=== PATIENT | male | born 1975 | race Caucasian/White ===

== ENCOUNTER 2017-05-02 08:34 | Emergency (ER) | payer OTHER ==
[~2017-05-02] VITALS: Ht 185.4 cm; Wt 94.0 kg
[~2017-05-02 08:34] MED LIST: BUSP-8 PO; CALC500C3 PO; CLON1TAB3 PO; FAMO20TA11 PO; FLUO40CA8 PO
[2017-05-02 08:39] VITALS: TEMP 37.1; Ht 185.4 cm; Wt 94.0 kg
[2017-05-02] MEDS ORDERED: ONDANSETRON INJ 2 MG/ML 2 ML VIAL IV STA (09:00)
[2017-05-02] MEDS ORDERED: HYDROmorphone INJ 1 MG/ML SYR IV STA (09:00)
[2017-05-02] MEDS ORDERED: HYDROmorphone INJ 0.5 MG/0.5 ML SYR IV PRN (09:00)
[2017-05-02] MEDS ORDERED: SODIUM CHLORIDE 0.9% 1000ML 1,000 ML IV STA (09:00)
[2017-05-02 09:13] LABS: MEAN CORPUSCULAR HGB CONC 33.8 g/dl (32-36)
[2017-05-02 09:15] LABS: MEAN CELL VOLUME 81.8 fL (80-100); MEAN CORPUSCULAR HEMOGLOBIN 27.6 pg (25-34); RED BLOOD COUNT 5.87 M/uL (4.7-6.1); WHITE BLOOD COUNT 4.61 K/uL (4.8-10.8)
[2017-05-02 09:32] LABS: URINE APPEARANCE CLEAR (CLEAR); URINE BILIRUBIN NEG (NEG); URINE COLOR YELLOW; URINE EPITHELIAL CELL AUTO 0-5 /lpf (0-5); URINE NITRITE NEG (NEG); URINE PH 8.5 (4.5-7.5); UROBILINOGEN NEG (NEG)
[2017-05-02 09:35] LABS: MANUAL MICROSCOPIC REQUIRED? NO; REVIEW REQ? NO
[2017-05-02 09:40] LABS: ALKALINE PHOSPHATASE 95 U/L (45-117); ALT/SGPT 50 U/L (12-78); AST/SGOT 45 U/L (15-37); BLOOD UREA NITROGEN 13 mg/dl (7-18); BUN/CREATININE RATIO 12.5 (10-20); CALCIUM 9.1 mg/dl (8.5-10.1); CARBON DIOXIDE 25 mmol/L (21-32); CHLORIDE 105 mmol/L (98-107); CREATININE 1.01 mg/dl (0.60-1.40); GLUCOSE 88 mg/dl (70-99); POTASSIUM 4.4 mmol/L (3.5-5.1); SODIUM 140 mmol/L (136-145)
[2017-05-02 09:46] LABS: PLATELET COUNT 129 K/uL (130-400)
[2017-05-02 09:47] LABS: BASO ABS # 0.08 K/uL (0-0.2); BASOPHIL % 1.8 % (0-2); COMPLETE YES; EOSINOPHIL % 1.8 %; LYMPH ABS # 0.94 K/uL (1.2-3.4); LYMPHOCYTE % 20.4 %; VARIANT LYM ABS # 0.77 K/uL; VARIANT LYMPHOCYTE % 16.8 %
[2017-05-02] MEDS ORDERED: CLON0.5T3 PO (09:53)
--- NOTE | 2017-05-02 12:12 | DIAGNOSTIC IMAGING REPORT ---
CT ABD/PELVIS IV AND ORAL CONT CLINICAL HISTORY: Right-sided abdominal pain COMPARISON STUDY: April 21, 2016 TECHNIQUE: Following the IV administration of 95 mL of Optiray-320, CT scan of the abdomen and pelvis was performed from the lung bases to the proximal femurs. Images are reviewed in the axial, sagittal, and coronal planes. IV contrast was administered without complication. A dose lowering technique was utilized adhering to the principles of ALARA. CT DOSE: 529.28 mGy.cm FINDINGS: Lower chest: There is an 8 triangular, somewhat flat nodule within the right lower lobe as visualized in image #8 of 461. This was not visualized the preceding study. This is of relatively low suspicion but given its interval appearance short-term follow-up is recommended. Liver: The contrast-enhanced liver is normal in size, contour, and attenuation. There is no intrahepatic biliary ductal dilatation. The hepatic veins and portal veins are patent. Gallbladder: Unremarkable. Spleen: Normal in size and attenuation. Pancreas: Unremarkable. Adrenal glands: Unremarkable. Kidneys: There is a 4 mm right renal hypodensity likely representing a cyst. There is a 3 mm lower pole right renal calculus. Bowel: There are postsurgical changes of a sigmoid anastomosis. There are no transition zones indicate bowel obstruction area by history the appendix is surgically absent. There is no evidence of acute diverticulitis. There is a left-sided spigelian hernia. There is a widemouth periumbilical ventral hernia containing small bowel loops. This does not result in bowel obstruction. Peritoneum: There is no intraperitoneal free air or abdominal ascites. Vasculature: The abdominal aorta is normal in course and caliber. Adenopathy: None. Pelvic viscera: The bladder, and pelvic viscera are unremarkable. Skeletal structures: No destructive osseous lesions are seen. IMPRESSION: 1. No evidence of bowel obstruction. No evidence of free air 2. Postsurgical changes of a sigmoid anastomosis 3. No evidence of acute diverticulitis 4. Bowel containing ventral hernia. No evidence of obstruction. 5. Left-sided spigelian hernia 6. Right-sided nephrolithiasis 7. 8 mm right lower lobe pulmonary nodule. 6-[address] follow-up is recommended. Please refer to below summary of Fleischner criteria recommendations for follow-up of incidental CT nodules (Paty Jain, Guidelines for management of small pulmonary nodules detected on CT scans: A statement from the Fleischner Society, Radiology 237: [phone].) SOLID NODULES Solitary nodule size: <6 mm * low risk patients: no follow-up needed * high risk patients: optional CT at 12 months Solitary nodule size: 6-8 mm * low risk patients: follow-up at 6-12 months, then consider further follow-up at 18-24 months * high risk patients: initial follow-up CT at 6-12 months and then at 18-24 months if no change Solitary nodule size: >8 mm * either low or high risk patients - consider follow-up CT at 3 months, and/or CT-PET, and/or biopsy Multiple nodules size: <6 mm * low risk patients: no routine follow-up * high risk patients: optional CT at 12 months Multiple nodules size: 6-8 mm * low risk patients: follow-up at 3-6 months, then consider further follow-up at 18-24 months * high risk patients: follow-up at 3-6 months, then at 18-24 months if no change Multiple nodules size: >8 mm * low risk patients: follow-up at 3-6 months, then consider further follow-up at 18-24 months * high risk patients: follow-up at 3-6 months, then at 18-24 months if no change Note: newly detected indeterminate nodule in persons 35 years of age or older. * low risk patients: minimal or absent history of smoking and/or other known risk factors * high risk patients: history of smoking or of other known risk factors (e.g. first degree relative with lung cancer, or exposure to asbestos, radon, uranium) * if a nodule up to 8 mm is partly solid or is ground glass further follow-up is required after 24 months to exclude possible slow growing adenocarcinoma (VAISHNAVI) SUBSOLID NODULES Solitary pure ground-glass nodule * nodule size <6 mm - no CT follow-up required * nodule size >=6 mm - follow-up CT at 6-12 months, then every 2 years until 5 years Solitary part-solid nodule * nodule size <6 mm - no CT follow-up required * nodule size >=6 mm - follow-up CT at 3-6 months. If unchanged, and solid component remains <6 mm, then annual follow-up for 5 years Multiple subsolid nodules * nodule size <6 mm - follow-up CT at 3-6 months, consider further follow-up at 2 and 4 years if stable * nodule size >=6 mm - follow-up CT at 3-6 months, subsequent management based on the most suspicious nodule(s) Electronically signed by: Wilson Becker M.D. 05/02/2017 12:11 PM Dictated Date/Time: 05/02/2017 12:02 PM
[2017-05-02] MEDS ORDERED: OXYC1TAB3 PO (13:14)
[2017-05-02 13:26] VITALS: BP 149/96; PULSE 62; O2SAT 97
--- NOTE | 2017-05-02 16:09 | EMERGENCY ROOM VISIT NOTE ---
History First contact with patient: 08:38 Chief Complaint: ABDOMINAL PAIN Stated Complaint: TERRIBLE STOMACH PAIN Nursing Triage Summary: abd pain hx diverticulitis with colostomy then reversed History of Present Illness The patient is a 42 year old male who presents to the Emergency Room with complaints of severe central and lower abdominal pain that woke him up around 3 AM this morning. The patient thought that he may have reflux, and took Tums without relief. He has had nausea without vomiting. The pain is worsened with movement. He denies any recent constipation, urinary symptoms or diarrhea. He denies any pain radiating into the upper back, chest or neck. The patient reports a prior history of diverticulitis with perforation, requiring bowel resection with colostomy in April 2015, followed by subsequent ostomy reversal this past spring by Dr. Lentz. He is concerned that he has another recurrent diverticulitis. He rates his discomfort a 10 out of 10. Review of Systems HEENT: Denies dizziness, visual problems, hearing loss, tinnitus. Denies difficulty swallowing or oral lesions. PULMONARY: Denies cough, shortness of breath, sputum production or hemoptysis. CARDIOVASCULAR: Denies chest pain, palpitations, dyspnea on exertion, orthopnea or peripheral edema. GASTROINTESTINAL: See history of present illness. GENITOURINARY: Denies dysuria, frequency, urgency or nocturia. NEUROLOGIC: Denies history of epilepsy, CVA, TIA or chronic headaches. MUSCULOSKELETAL: Denies history of joint tenderness/swelling. SKIN: Denies rashes or lesions. PSYCHIATRIC: Denies history of depression or mental illness. ENDOCRINE: Denies history of diabetes or thyroid disorders. Past Medical/Surgical History Medical Problems: (1) Bowel perforation (2) Diverticulitis Surgical Problems: (1) History of colostomy Family History Cancer Diabetes mellitus Social History Smoking Status: Current Every Day Smoker Alcohol Use: occasionally Drug Use: none Marital Status: single Occupation Status: employed Current/Historical Medications Scheduled PRN Calcium Carbonate (Tums), 1 TAB PO DAILY PRN for HEARTBURN Oxycodone Ir (Roxicodone Ir), 1-2 TAB PO Q4H PRN for Pain Miscellaneous Medications Clonazepam (Klonopin), 0.5 MG PO Allergies Coded Allergies: No Known Allergies (Verified , 04/21/16) Physical Exam Vital Signs Date Time Temp Pulse Resp B/P (MAP) Pulse Ox O2 Delivery O2 Flow Rate FiO2 05/02/17 13:26 62 18 149/96 97 05/02/17 12:16 60 16 140/91 98 Room Air 05/02/17 10:55 63 16 142/104 99 Room Air 05/02/17 09:12 72 16 154/103 97 Room Air 05/02/17 08:39 37.1 79 18 177/109 98 Room Air Physical Exam CONSTITUTIONAL: Healthy and well nourished. Alert and oriented X 3 with positive affect. The patient appears in moderately severe distress and discomfort. He does not appear acutely ill or toxic. HEENT: Normocephalic, atraumatic. Pupils equal, round and reactive. No scleral icterus or conjunctival injection/pallor. OROPHARYNX: No tonsillar hypertrophy or exudates. Mucous membranes are dry. NECK: Full active range of motion without discomfort. RESPIRATORY: Clear to auscultation bilaterally with no wheezing, crackles, rhonchi or stridor. CARDIOVASCULAR: Regular rate and rhythm with no murmurs, rubs or gallops. GASTROINTESTINAL: Bowel sounds present in all quadrants. Patient has diffuse tenderness to palpation of the abdomen with no rigidity, guarding or rebound. Negative CVA tenderness. Patient has a large surgical incision on the abdomen. No obvious palpable abdominal wall masses or bulging. MUSCULOSKELETAL: Full range of motion of all joints without discomfort. INTEGUMENTARY: No rash or other significant dermatologic conditions noted. HEMATOLOGIC: No ecchymosis or petechiae noted. NEUROLOGIC: No focal neurologic deficits noted. Medical Decision & Procedures ER Provider Diagnostic Interpretation: Enhanced CT of the abdomen and pelvis does not show any obvious diverticulitis, free abdominal air or other acute findings. An abdominal wall hernia is also noted without evidence for obstruction. An 8 mm right lower lobe pulmonary nodule was also noted. Radiologist report is as follows: CT ABD/PELVIS IV AND ORAL CONT CLINICAL HISTORY: Right-sided abdominal pain COMPARISON STUDY: April 21, 2016 TECHNIQUE: Following the IV administration of 95 mL of Optiray-320, CT scan of the abdomen and pelvis was performed from the lung bases to the proximal femurs. Images are reviewed in the axial, sagittal, and coronal planes. IV contrast was administered without complication. A dose lowering technique was utilized adhering to the principles of ALARA. CT DOSE: 529.28 mGy.cm FINDINGS: Lower chest: There is an 8 triangular, somewhat flat nodule within the right lower lobe as visualized in image #8 of 461. This was not visualized the preceding study. This is of relatively low suspicion but given its interval appearance short-term follow-up is recommended. Liver: The contrast-enhanced liver is normal in size, contour, and attenuation. There is no intrahepatic biliary ductal dilatation. The hepatic veins and portal veins are patent. Gallbladder: Unremarkable. Spleen: Normal in size and attenuation. Pancreas: Unremarkable. Adrenal glands: Unremarkable. Kidneys: There is a 4 mm right renal hypodensity likely representing a cyst. There is a 3 mm lower pole right renal calculus. Bowel: There are postsurgical changes of a sigmoid anastomosis. There are no transition zones indicate bowel obstruction area by history the appendix is surgically absent. There is no evidence of acute diverticulitis. There is a left-sided spigelian hernia. There is a [place] periumbilical ventral hernia containing small bowel loops. This does not result in bowel obstruction. Peritoneum: There is no intraperitoneal free air or abdominal ascites. Vasculature: The abdominal aorta is normal in course and caliber. Adenopathy: None. Pelvic viscera: The bladder, and pelvic viscera are unremarkable. Skeletal structures: No destructive osseous lesions are seen. IMPRESSION: 1. No evidence of bowel obstruction. No evidence of free air 2. Postsurgical changes of a sigmoid anastomosis 3. No evidence of acute diverticulitis 4. Bowel containing ventral hernia. No evidence of obstruction. 5. Left-sided spigelian hernia 6. Right-sided nephrolithiasis 7. 8 mm right lower lobe pulmonary nodule. 6-[address] follow-up is recommended. Laboratory Results 05/02/17 08:55 Red Blood Count 5.87, Mean Corpuscular Volume 81.8, Mean Corpuscular Hemoglobin 27.6, Mean Corpuscular Hemoglobin Concent 33.8 05/02/17 08:55 Test 05/02/17 08:55 05/02/17 09:10 05/02/17 09:12 White Blood Count 4.61 K/uL (4.8-10.8) Red Blood Count 5.87 M/uL (4.7-6.1) Hemoglobin 16.2 g/dL (14.0-18.0) Hematocrit 48.0 % (42-52) Mean Corpuscular Volume 81.8 fL (80-100) Mean Corpuscular Hemoglobin 27.6 pg (25-34) Mean Corpuscular Hemoglobin Concent 33.8 g/dl (32-36) Platelet Count 129 K/uL (130-400) RDW Standard Deviation 54.0 fL (36.4-46.3) RDW Coefficient of Variation 17.9 % (11.5-14.5) Neutrophils % (Manual) 53.0 % Lymphocytes % (Manual) 20.4 % Variant Lymphocytes % (manual) 16.8 % Monocytes % (Manual) 6.2 % Eosinophils % (Manual) 1.8 % Basophils % (Manual) 1.8 % (0-2) Neutrophils # (Manual) 2.44 K/uL (1.4-6.5) Total Absolute Neutrophils 2.44 K/uL (1.4-6.5) Lymphocytes # (Manual) 0.94 K/uL (1.2-3.4) Absolute Variant Lymphocytes 0.77 K/uL Total Absolute Lymphocytes 1.71 K/uL (1.2-3.4) Monocytes # (Manual) 0.29 K/uL (0.11-0.59) Eosinophils # (Manual) 0.08 K/uL (0-0.5) Basophils # (Manual) 0.08 K/uL (0-0.2) Red Blood Cell Morphology Unremarkable Anion Gap 10.0 mmol/L (3-11) Est Creatinine Clear Calc Drug Dose 108.7 ml/min Estimated GFR () 106.6 Estimated GFR (Non- 92.0 BUN/Creatinine Ratio 12.5 (10-20) Calcium Level 9.1 mg/dl (8.5-10.1) Total Bilirubin 0.7 mg/dl (0.2-1) Direct Bilirubin mg/dl (0-0.2) Aspartate Amino Transf (AST/SGOT) 45 U/L (15-37) Alanine Aminotransferase (ALT/SGPT) 50 U/L (12-78) Alkaline Phosphatase 95 U/L (45-117) Total Creatine Kinase 105 U/L (39-308) Total Protein 8.1 gm/dl (6.4-8.2) Albumin 3.8 gm/dl (3.4-5.0) Lipase 263 U/L (73-393) Chemistry Specimen Hemolysis Bedside Lactic Acid Venous 0.64 mmol/L (0.90-1.70) Urine Color YELLOW Urine Appearance CLEAR (CLEAR) Urine pH 8.5 (4.5-7.5) Urine Specific [place] 1.010 (1.000-1.030) Urine Protein NEG (NEG) Urine Glucose (UA) NEG (NEG) Urine Ketones NEG (NEG) Urine Occult Blood 1+ (NEG) Urine Nitrite NEG (NEG) Urine Bilirubin NEG (NEG) Urine Urobilinogen NEG (NEG) Urine Leukocyte Esterase TRACE (NEG) Urine WBC (Auto) 1-5 /hpf (0-5) Urine RBC (Auto) 5-10 /hpf (0-4) Urine Hyaline Casts (Auto) 0 /lpf (0-5) Urine Epithelial Cells (Auto) 0-5 /lpf (0-5) Urine Bacteria (Auto) NEG (NEG) Medications Administered Medications (Trade) Dose Ordered Sig/Michelle Route Start Time Stop Time Status Last Admin Dose Admin Sodium Chloride 1,000 ml @ 999 mls/hr Q1H1M STAT IV 05/02/17 09:00 05/02/17 10:00 DC 05/02/17 09:10 999 MLS/HR Ondansetron HCl (Zofran Inj) 4 mg NOW STAT IV 05/02/17 09:00 05/02/17 09:05 DC 05/02/17 09:10 4 MG Hydromorphone HCl (Dilaudid Inj) 1 mg NOW STAT IV 05/02/17 09:00 05/02/17 09:05 DC 05/02/17 09:11 1 MG Hydromorphone HCl (Dilaudid Inj) 0.5 mg Q30M PRN IV 05/02/17 09:00 05/02/17 14:19 DC 05/02/17 10:13 0.5 MG ED Course Patient history and physical exam were performed. Nurse's notes were reviewed. Vital signs were reviewed. The patient has an elevated blood pressure 177/ 109. He is afebrile and not tachycardic. The patient appears in moderate severe discomfort. IV access was established, and labs were drawn. The patient was hydrated with normal saline, and was initially administered IV Dilaudid and Zofran for pain. Review of labs did not show any acute leukocytosis, elevated LFTs, lipase or urinalysis findings consistent with infection. The patient tolerated oral contrast well, however did have worsening pain. He was administered and additional dose of Dilaudid for recurrent pain. Enhanced CT of the abdomen and pelvis was performed to show no evidence for acute diverticulitis, free air or other acute findings. An umbilical hernia is noted without evidence for obstruction. Additional is no findings were also noted, including an 8 mm right lower lobe pulmonary nodule was also discussed with the patient. The patient reports that his pain has somewhat subsided, rating his discomfort a 6 out of 10 during my reevaluation. The case was further discussed with Dr. Ziegler, ED attending physician, who agrees with current workup and outpatient plan of care with Dr. Lentz. The patient was instructed to call his office for follow-up with them within the next few days. He was provided a prescription for OxyIR as needed for worse pain. No drinking alcohol or driving while taking OxyIR. The patient was also encouraged to follow-up with his PCP did discuss his pulmonary nodule and repeat CT imaging after 6 months. He was instructed to return to the emergency department for any progressively worsening symptoms, including worsening pain, fever, rectal bleeding, persistent vomiting or other concerning symptoms. The patient was happy with plan of care, and voiced understanding of all discharge instructions. Medical Decision Patient presents to the emergency department with abrupt onset of central and lower abdominal pain. The patient does have a significant history of diverticulitis perforation, status post colectomy with colostomy bag and subsequent colostomy reversal. His CT imaging today is not suggestive of recurrent diverticulitis or perforation. As have an umbilical hernia noted without evidence for obstruction. I suppose it is possible that the patient may have had some acute exacerbation of pain if it was not reducible. However, there is noted bowel within the hernia at this time, and no evidence for obstruction. There is no obstructive uropathy noted on CT scan. The patient is status post appendectomy. Laboratory studies are not suggestive of pancreatitis, cholecystitis or hepatitis. [place] Drug Monitoring Program Search Results: patient reviewed within database, no issues identified Impression Primary Impression: Periumbilical hernia Additional Impressions: History of colostomy reversal Pulmonary nodule, right History of diverticulitis Departure Information Dispostion Home / Self-Care Condition GOOD Prescriptions Oxycodone Ir (Roxicodone Ir) 5 Mg Tab 1-2 TAB PO Q4H Y for Pain, #15 TAB For Initial Treatment Prov: Juan Arguelles PA 05/02/17 Referrals Regino Lentz M.D. Forms Call Back Authorization, HOME CARE DOCUMENTATION FORM, IMPORTANT VISIT INFORMATION Patient Instructions [employer] Additional Instructions Take OxyIR as needed for pain. Do not drink alcohol or drive while taking OxyIR. Take a stool softener to prevent constipation. Follow-up with Dr. Lentz for further reevaluation - call office for an appointment. Return to the emergency department for any progressively worsening pain, persistent vomiting, fever or other concerning symptoms. Discuss further CT follow-up with your family doctor for your pulmonary nodule. Problem Qualifiers
== END 2017-05-02 13:29 | disposition home or self-care (01) ==
LOC: C.EDB 08:36 → C.EDA 13:29
DX: K42.9 Umbilical hernia without obstruction or gangrene (principal); R91.1 Solitary pulmonary nodule; R11.0 Nausea; Z87.19 Personal history of other diseases of the digestive system; Z83.3 Family history of diabetes mellitus; F17.200 Nicotine dependence, unspecified, uncomplicated

== ENCOUNTER 2017-05-22 12:04 | Emergency (ER) | payer OTHER ==
[~2017-05-22] VITALS: Ht 185.4 cm; Wt 90.0 kg
[~2017-05-22 12:04] MED LIST changes: -BUSP-8 PO; +CLON0.5T3 PO; -CLON1TAB3 PO; -FAMO20TA11 PO; -FLUO40CA8 PO; +OXYC1TAB3 PO
[2017-05-22 12:05] VITALS: TEMP 36.2; Ht 185.4 cm; Wt 90.0 kg
[2017-05-22] MEDS ORDERED: ONDANSETRON INJ 2 MG/ML 2 ML VIAL IV STA (13:03)
[2017-05-22] MEDS ORDERED: MoRPHine SULFATE 10 MG/ML CARP/VIAL IV STA (13:03)
[2017-05-22] MEDS ORDERED: ULT50 PO (13:15)
[2017-05-22 13:43] LABS: MEAN CORPUSCULAR HGB CONC 34.1 g/dl (32-36)
[2017-05-22 14:05] LABS: BUN/CREATININE RATIO 8.4 (10-20); CALCIUM 9.2 mg/dl (8.5-10.1); CREATININE 1.01 mg/dl (0.60-1.40)
[2017-05-22 14:12] LABS: URINE APPEARANCE CLEAR (CLEAR); URINE BILIRUBIN NEG (NEG); URINE COLOR YELLOW; URINE EPITHELIAL CELL AUTO 0-5 /lpf (0-5); URINE NITRITE NEG (NEG); URINE PH >= 9.0 (4.5-7.5); UROBILINOGEN NEG (NEG); ZZUR CULT IF INDIC CLEAN CATCH NO
[2017-05-22 14:13] LABS: HEMATOCRIT 46.9 % (42-52); MEAN CELL VOLUME 83.5 fL (80-100); MEAN CORPUSCULAR HEMOGLOBIN 28.5 pg (25-34); RED BLOOD COUNT 5.62 M/uL (4.7-6.1); WHITE BLOOD COUNT 5.02 K/uL (4.8-10.8)
[2017-05-22 14:20] LABS: MANUAL MICROSCOPIC REQUIRED? NO; REVIEW REQ? NO
[2017-05-22 14:29] LABS: PLATELET COUNT 110 K/uL (130-400)
[2017-05-22 14:30] LABS: BASO % 0.4 %; BASO ABS # 0.02 K/uL (0-0.2); COMPLETE YES; EOS % 0.4 %; LARGE PLATELETS 2+; LYMPH % 35.3 %; LYMPH ABS # 1.77 K/uL (1.2-3.4); MONO % 5.4 %; NEUT % 58.5 %
[2017-05-22] MEDS ORDERED: OPTIRAY 320 IV PRN (14:45)
[2017-05-22] MEDS ORDERED: MoRPHine SULFATE 4 MG/ML 1 ML CARP\\VIAL IV STA (14:46)
--- NOTE | 2017-05-22 15:07 | DIAGNOSTIC IMAGING REPORT ---
CT SCAN OF THE ABDOMEN AND PELVIS WITH IV CONTRAST CLINICAL HISTORY: Generalized abdominal pain. COMPARISON STUDY: Abdominal CT scans dated 05/02/2017 and 08/13/2015. TECHNIQUE: Following the IV administration of 88 cc of Optiray 320, CT scan of the abdomen and pelvis is performed from the lung bases to the proximal femora. Images are reviewed in the axial, sagittal, and coronal planes. IV contrast was administered without complication. A dose lowering technique was utilized adhering to the principles of ALARA. CT DOSE: 774.57 mGycm FINDINGS: Lung bases: The heart is normal in size and without pericardial effusion. The lung bases are clear noting mild bibasilar atelectasis. Liver: The contrast-enhanced liver is normal in size, contour, and attenuation. There is no intrahepatic biliary ductal dilatation. The hepatic veins and portal veins are patent. Gallbladder: Unremarkable. Spleen: Normal in size and attenuation. Pancreas: Unremarkable. Adrenal glands: Unremarkable. Kidneys: The contrast enhanced kidneys are normal in size and without hydronephrosis. The kidneys enhance symmetrically. There is a small nonobstructing right renal calculus. Subcentimeter cortical hypodensities in the right kidney likely represent tiny cysts but are too small for definitive characterization. Abdominal vasculature: The abdominal aorta is normal in course and caliber. Bowel end peritoneum: There are postoperative changes from sigmoid colon resection with colocolonic anastomosis. No bowel obstruction is seen.. The appendix is surgically absent. There is a fat and small bowel containing umbilical hernia seen on axial image #232. The hernia orifice measures 3.8 cm. A small bowel containing supra umbilical hernia is seen on image #191. The hernia orifice measures 5.2 cm diameter and there is diastases of the rectus abdominis muscles are. A fat-containing incisional hernia is seen in the left lower quadrant on image #211. 4. There is a small nonobstructing right renal calculus. A tiny fat-containing ventral hernia below the xiphoid process is seen on image #65. There is no intraperitoneal free air or abdominal ascites. Lymphadenopathy: Prominent upper abdominal lymph nodes are nonspecific. A portacaval node on image #74 measures 10 mm in short axis. Prominent gastrohepatic nodes measure up to 9 mm short axis. These are similar to previous. Pelvic viscera: The bladder, prostate, and seminal vesicles are normal as visualized. Skeletal structures: No lytic or blastic lesions are seen. IMPRESSION: 1. There are no acute infectious or inflammatory findings in the abdomen or pelvis. 2. There are postoperative changes from sigmoid colon resection with colocolonic anastomosis. No bowel obstruction is seen. 3. There are 2 ventral abdominal hernias containing nonobstructed segments of small bowel. These are similar to previous. 4. Additional findings as above. Electronically signed by: Duglas Bhakta M.D. 05/22/2017 3:06 PM Dictated Date/Time: 05/22/2017 2:59 PM
[2017-05-22] MEDS ORDERED: OXYCODONE IR HOME PACK PO ONE (16:00)
[2017-05-22 16:48] VITALS: BP 155/104; PULSE 80; O2SAT 97
--- NOTE | 2017-05-22 19:21 | EMERGENCY ROOM VISIT NOTE ---
History Report prepared by Patrick: Александр Brumfield Under the Supervision of: Dr. Victorino Reinoso D.O. First contact with patient: 12:49 Chief Complaint: ABDOMINAL PAIN Stated Complaint: HERNIA PAIN Nursing Triage Summary: pt here with worsening abd pain from his hernia and was told to come to the ED if his pain gets worse History of Present Illness The patient is a 42 year old male who presents to the Emergency Room with complaints of worsening abdominal pain starting this morning around 0400. The patient states that he has and abdominal hernia for three weeks, and the abdominal pain significantly worsened this morning. He states that he had a CT scan of his abdomen, and he had a 120mm hernia. He has seen the surgeon here, and they told him that he can not do the surgery since it is so large, so he is going to see another surgeon in [place] on the . The patient states that he had a bowel movement this morning, and there was no blood. He notes that the abdominal pain is worsened with strain and pressure such as when he is urinating. The patient states that he has been eating and drinking well, and he has a history of an appendectomy. Pt denies headache, change in vision, cough, runny nose, fevers, chest pain, shortness of breath, vomiting, diarrhea, pain with urination, and melena. Source of History: patient Onset: 0400 Position: abdomen Timing: worsening Modifying Factors (Worsening): other (straining and pressure) Associated Symptoms: No cough, No hematochezia Review of Systems See HPI for pertinent positives & negatives. A total of 10 systems reviewed and were otherwise negative. Past Medical & Surgical Medical Problems: (1) Bowel perforation (2) Diverticulitis Surgical Problems: (1) History of colostomy Family History Cancer Diabetes mellitus Social History Smoking Status: Current Every Day Smoker Alcohol Use: occasionally Drug Use: none Marital Status: single Occupation Status: employed Current/Historical Medications Scheduled Tramadol HCl (Tramadol HCl), 50 MG PO Q8 Scheduled PRN Calcium Carbonate (Tums), 1 TAB PO DAILY PRN for HEARTBURN Miscellaneous Medications Clonazepam (Klonopin), 0.5 MG PO Allergies Coded Allergies: No Known Allergies (Verified , 05/22/17) Physical Exam Vital Signs Date Time Temp Pulse Resp B/P (MAP) Pulse Ox O2 Delivery O2 Flow Rate FiO2 05/22/17 16:48 80 16 155/104 97 05/22/17 15:49 74 17 152/109 96 Room Air 05/22/17 12:25 81 05/22/17 12:05 36.2 94 20 138/89 97 Room Air Physical Exam GENERAL: Sitting up in bed, moderate distress, holding abdomen EYE EXAM: normal conjunctiva. OROPHARYNX: no exudate, no erythema, lips, buccal mucosa, and tongue normal and mucous membranes are moist NECK: supple, no nuchal rigidity, no adenopathy, non-tender LUNGS: Clear to auscultation. Normal chest wall mechanics HEART: no murmurs, S1 normal and S2 normal ABDOMEN: Large deformity noted along the midline of the abdomen supraumbilically with what appears to be dehiscence of the fascia. No incarcerated bowel. abdomen soft, non-tender, normo-active bowel sounds, no rebound or guarding. BACK: Back is symmetrical on inspection and there is no deformity, no midline tenderness, no CVA tenderness. SKIN: no rashes and no bruising UPPER EXTREMITIES: upper extremities are grossly normal. LOWER EXTREMITIES: No pitting edema. NEURO EXAM: Normal sensorium, cranial nerves II-XII grossly intact, normal speech, no gross weakness of arms, no gross weakness of legs. Gross sensation intact. Medical Decision & Procedures ER Provider Diagnostic Interpretation: Radiology results as stated below per my review and the radiologist's interpretation: CT SCAN OF THE ABDOMEN AND PELVIS WITH IV CONTRAST CLINICAL HISTORY: Generalized abdominal pain. COMPARISON STUDY: Abdominal CT scans dated 05/02/2017 and 08/13/2015. TECHNIQUE: Following the IV administration of 88 cc of Optiray 320, CT scan of the abdomen and pelvis is performed from the lung bases to the proximal femora. Images are reviewed in the axial, sagittal, and coronal planes. IV contrast was administered without complication. A dose lowering technique was utilized adhering to the principles of ALARA. CT DOSE: 774.57 mGycm FINDINGS: Lung bases: The heart is normal in size and without pericardial effusion. The lung bases are clear noting mild bibasilar atelectasis. Liver: The contrast-enhanced liver is normal in size, contour, and attenuation. There is no intrahepatic biliary ductal dilatation. The hepatic veins and portal veins are patent. Gallbladder: Unremarkable. Spleen: Normal in size and attenuation. Pancreas: Unremarkable. Adrenal glands: Unremarkable. Kidneys: The contrast enhanced kidneys are normal in size and without hydronephrosis. The kidneys enhance symmetrically. There is a small nonobstructing right renal calculus. Subcentimeter cortical hypodensities in the right kidney likely represent tiny cysts but are too small for definitive characterization. Abdominal vasculature: The abdominal aorta is normal in course and caliber. Bowel end peritoneum: There are postoperative changes from sigmoid colon resection with colocolonic anastomosis. No bowel obstruction is seen.. The appendix is surgically absent. There is a fat and small bowel containing umbilical hernia seen on axial image #232. The hernia orifice measures 3.8 cm. A small bowel containing supra umbilical hernia is seen on image #191. The hernia orifice measures 5.2 cm diameter and there is diastases of the rectus abdominis muscles are. A fat-containing incisional hernia is seen in the left lower quadrant on image #211. 4. There is a small nonobstructing right renal calculus. A tiny fat-containing ventral hernia below the xiphoid process is seen on image #65. There is no intraperitoneal free air or abdominal ascites. Lymphadenopathy: Prominent upper abdominal lymph nodes are nonspecific. A portacaval node on image #74 measures 10 mm in short axis. Prominent gastrohepatic nodes measure up to 9 mm short axis. These are similar to previous. Pelvic viscera: The bladder, prostate, and seminal vesicles are normal as visualized. Skeletal structures: No lytic or blastic lesions are seen. IMPRESSION: 1. There are no acute infectious or inflammatory findings in the abdomen or pelvis. 2. There are postoperative changes from sigmoid colon resection with colocolonic anastomosis. No bowel obstruction is seen. 3. There are 2 ventral abdominal hernias containing nonobstructed segments of small bowel. These are similar to previous. 4. Additional findings as above. Electronically signed by: Duglas Bhakta M.D. 05/22/2017 3:06 PM Dictated Date/Time: 05/22/2017 2:59 PM Laboratory Results 05/22/17 13:00 Red Blood Count 5.62, Mean Corpuscular Volume 83.5, Mean Corpuscular Hemoglobin 28.5, Mean Corpuscular Hemoglobin Concent 34.1, Neutrophils (%) (Auto) 58.5, Lymphocytes (%) (Auto) 35.3, Monocytes (%) (Auto) 5.4, Eosinophils (%) (Auto) 0.4, Basophils (%) (Auto) 0.4, Neutrophils # (Auto) 2.94, Lymphocytes # (Auto) 1.77, Monocytes # (Auto) 0.27, Eosinophils # (Auto) 0.02, Basophils # (Auto) 0.02 05/22/17 13:00 Test 05/22/17 00:00 05/22/17 13:00 05/22/17 15:11 Urine Color YELLOW Urine Appearance CLEAR (CLEAR) Urine pH >= 9.0 (4.5-7.5) Urine Specific [place] 1.010 (1.000-1.030) Urine Protein NEG (NEG) Urine Glucose (UA) NEG (NEG) Urine Ketones NEG (NEG) Urine Occult Blood NEG (NEG) Urine Nitrite NEG (NEG) Urine Bilirubin NEG (NEG) Urine Urobilinogen NEG (NEG) Urine Leukocyte Esterase NEG (NEG) Urine WBC (Auto) 1-5 /hpf (0-5) Urine RBC (Auto) 0-4 /hpf (0-4) Urine Hyaline Casts (Auto) 0 /lpf (0-5) Urine Epithelial Cells (Auto) 0-5 /lpf (0-5) Urine Bacteria (Auto) NEG (NEG) White Blood Count 5.02 K/uL (4.8-10.8) Red Blood Count 5.62 M/uL (4.7-6.1) Hemoglobin 16.0 g/dL (14.0-18.0) Hematocrit 46.9 % (42-52) Mean Corpuscular Volume 83.5 fL (80-100) Mean Corpuscular Hemoglobin 28.5 pg (25-34) Mean Corpuscular Hemoglobin Concent 34.1 g/dl (32-36) Platelet Count 110 K/uL (130-400) Neutrophils (%) (Auto) 58.5 % Lymphocytes (%) (Auto) 35.3 % Monocytes (%) (Auto) 5.4 % Eosinophils (%) (Auto) 0.4 % Basophils (%) (Auto) 0.4 % Neutrophils # (Auto) 2.94 K/uL (1.4-6.5) Lymphocytes # (Auto) 1.77 K/uL (1.2-3.4) Monocytes # (Auto) 0.27 K/uL (0.11-0.59) Eosinophils # (Auto) 0.02 K/uL (0-0.5) Basophils # (Auto) 0.02 K/uL (0-0.2) RDW Standard Deviation 52.5 fL (36.4-46.3) RDW Coefficient of Variation 17.2 % (11.5-14.5) Immature Granulocyte % (Auto) 0.0 % Immature Granulocyte # (Auto) 0.00 K/uL (0.00-0.02) Large Platelets 2+ Anion Gap 5.0 mmol/L (3-11) Est Creatinine Clear Calc Drug Dose 108.7 ml/min Estimated GFR () 106.6 Estimated GFR (Non- 92.0 BUN/Creatinine Ratio 8.4 (10-20) Calcium Level 9.2 mg/dl (8.5-10.1) Total Bilirubin 1.0 mg/dl (0.2-1) Direct Bilirubin 0.3 mg/dl (0-0.2) Aspartate Amino Transf (AST/SGOT) 52 U/L (15-37) Alanine Aminotransferase (ALT/SGPT) 67 U/L (12-78) Alkaline Phosphatase 113 U/L (45-117) Total Protein 7.7 gm/dl (6.4-8.2) Albumin 3.7 gm/dl (3.4-5.0) Lipase 147 U/L (73-393) Lactic Acid Level 0.8 mmol/L (0.4-2.0) Laboratory results per my review. Medications Administered Medications (Trade) Dose Ordered Sig/Michelle Route Start Time Stop Time Status Last Admin Dose Admin Morphine Sulfate (MoRPHine SULFATE INJ) 6 mg NOW STAT IV 05/22/17 13:03 05/22/17 13:05 DC 05/22/17 13:42 6 MG Ondansetron HCl (Zofran Inj) 4 mg NOW STAT IV 05/22/17 13:03 05/22/17 13:05 DC 05/22/17 13:42 4 MG Morphine Sulfate (MoRPHine SULFATE INJ) 4 mg NOW STAT IV 05/22/17 14:46 05/22/17 14:47 DC 05/22/17 15:06 4 MG Oxycodone HCl (Roxicodone Immediate Rel 5MG Home Pack) 1 homepack UD ONCE PO 05/22/17 16:00 05/22/17 16:01 DC 05/22/17 16:00 1 HOMEPACK ED Course ED COURSE: Vital signs were reviewed and showed situational hypertension The patients medical record was reviewed The above diagnostic studies were performed and reviewed. ED treatments and interventions as stated above. 1249: The patient was evaluated in room C8. A complete history and physical examination was performed. 1303: Zofran 4mg IV, Morphine Sulfate 6mg IV 1444: I reevaluated the patient, and he was comfortable, and just returned from CT scan. 1446: Morphine Sulfate 4mg IV 1557: Upon reevaluation, the patient is doing well.I discussed my findings with the patient and he understands and agrees with the treatment plan. Based on the patients age, coexisting illnesses, exam and lab findings the decision to treat as an outpatient was made. The patient remained stable while under my care. The patient appeared well at the time of discharge. 1600: Oxycodone HCl 1 Home Pack PO Medical Decision Differential diagnoses includes but is not limited to gastritis, peptic ulcer disease, GERD, gallbladder disease, pancreatitis, small bowel obstruction, acute coronary syndrome, pericarditis, ischemic bowel, irritable bowel disease, irritable bowel syndrome, appendicitis, diverticulitis, malignancy, hernia, urinary tract infection, torsion, perforation, trauma, infectious. Patient is a 42-year-old male with a known large abdominal hernia/defect within the fascia. He presents for abdominal pain at this location. This. Present for the past several weeks but worsening. No vomiting or diarrhea. Abdominal exam does show dehiscence of the fascia but no incarcerated bowel. CBC all BMP , LFTs, bilirubin, lipase and lactic acid was normal. UA was negative per patient was given IV morphine 2. CT abdomen and pelvis was unremarkable. Patient was updated regards to findings and was discharged follow-up with general surgery. Patient was given Oxy IR to go. Discussed with Pt concerning signs and symptoms to watch out for. Pt was instructed to follow up with their PCP and discussed with the patient their option to return to the ED at anytime for persistent or worsening symptoms. The appropriate anticipatory guidance and out-patient management, including indications for return to the emergency department, were explained at length to the patient and understood. [place] Drug Monitoring [place] Search Results: patient reviewed within database, no issues identified Medication Reconcilliation Current Medication List: was personally reviewed by me Blood Pressure Screening Patient's blood pressure: Elevated blood pressure Blood pressure disposition: Elevated BP felt to be situational Impression Primary Impression: Hernia Additional Impression: Abdominal pain Scribe Attestation The scribe's documentation has been prepared under my direction and personally reviewed by me in its entirety. I confirm that the note above accurately reflects all work, treatment, procedures, and medical decision making performed by me. Departure Information Dispostion Home / Self-Care Referrals Lamine Coleman D.O. (PCP) Forms Call Back Authorization, HOME CARE DOCUMENTATION FORM, IMPORTANT VISIT INFORMATION Patient Instructions Abdominal Pain - [facility], Hernia How Develops, My [facility] Additional Instructions Please follow up with your primary care doctor with in the next 24 hours. Any worsening of your symptoms, please return to the ED immediately. This includes any fevers greater than 100.4, worsening pain, chest pain, shortness breath, persistent nausea, vomiting, unable to eat or drink, or any other concerning signs or symptoms from your standpoint. You were given medications during this visit that will inhibit your ability to drive, operate machinery and work. Please do NOT drive, operate machinery, drink alcohol or work for the next 12hrs. Please keep your appointment with your surgeon and try to move this up if possible. If you're ever unable to reduce hernia he needs to return immediately to the ER. Problem Qualifiers Additional Impression: Abdominal pain Abdominal location: unspecified location Qualified Codes: R10.9 - Unspecified abdominal pain
== END 2017-05-22 16:40 | disposition home or self-care (01) ==
LOC: C.EDB 12:05 → C.EDC 16:40
DX: K46.9 Unspecified abdominal hernia without obstruction or gangrene (principal); K57.92 Diverticulitis of intestine, part unspecified, without perforation or abscess without bleeding; R03.0 Elevated blood-pressure reading, without diagnosis of hypertension; F17.200 Nicotine dependence, unspecified, uncomplicated; Z90.89 Acquired absence of other organs; Z83.3 Family history of diabetes mellitus; Z79.891 Long term (current) use of opiate analgesic

== ENCOUNTER 2017-08-28 11:06 | Emergency (ER) | payer OTHER ==
[~2017-08-28] VITALS: Ht 185.4 cm; Wt 89.1 kg
[2017-08-28 11:06] VITALS: TEMP 36.8; Ht 185.4 cm; Wt 89.1 kg
[~2017-08-28 11:06] MED LIST changes: -OXYC1TAB3 PO; +ULT50 PO
[2017-08-28] MEDS ORDERED: MoRPHine SULFATE 10 MG/ML CARP/VIAL ONE (11:18)
[2017-08-28 11:20] VITALS: O2SAT 97
--- NOTE | 2017-08-28 12:02 | DIAGNOSTIC IMAGING REPORT ---
ABDOMEN 2VIEW W/PA CHEST RTN CLINICAL HISTORY: Abdominal pain. Trauma. History of recent hernia repair. COMPARISON STUDY: CT scan dated 05/22/2017 FINDINGS: The erect chest reveals no evidence of free air. There is no evidence of focal pulmonary consolidation.] Erect and supine views of the abdomen reveal no abnormally dilated loops of large or small bowel. There are no transition zone to indicate bowel obstruction. There are surgical clips within the right lower quadrant. There is a thoracolumbar scoliosis. IMPRESSION: No evidence of bowel obstruction. No evidence of free air. Electronically signed by: Wilson Becker M.D. 08/28/2017 12:01 PM Dictated Date/Time: 08/28/2017 12:00 PM
[2017-08-28] MEDS ORDERED: OXYC1TAB3 PO (12:28)
--- NOTE | 2017-08-28 12:29 | EMERGENCY ROOM VISIT NOTE ---
History First contact with patient: 11:21 Chief Complaint: ABDOMINAL PAIN Stated Complaint: ABDOMINAL PAIN Nursing Triage Summary: Pt presents via [facility] medic with [facility]. Pt had hernia surgery at [facility] 3 weeks prior on 08/08 and released 08/13, and has been healing well, reportedly his pain has been in check with Tramadol PRN, and has been having successful checkups with his PCP and surgeon. This morning he was in the kitchen, tripped over his own feet, and fell to the ground landing on his left side. Pt reported that when he fell, he had a flash of pain at the hernia surgery site and was in extreme pain after the fall. At that point he was having excessive pain and was not able to move under his own power. Pt unable to sit up on the floor under his own power. EMS called. Medic 24-14 advised that pt was provided 6mg Morphine IV on scene for extrication, and additional 6mg Morphine IV en route. Pt is complaining of pain to the right of his midline abdominal incision, currently rated 7/10, worsening upon palpation and movement of the abdomen. Pt has vertical surgical incision, just to left of umbilicus, approx 5.5" length, healing well, well-approximated, with slight scabbing at suture sites. Pt states that the abdomen and incision look the same now versus before the fall. Pt is CAOx4 to person, place, time, event. Pt answers all questions appropriately and without hesitation. Pt able to move all extremities upon command and with purpose. Pt denies head/neck/back pain, denies chest pain, denies trouble breathing, denies blurred vision. History of Present Illness The patient is a 42 year old male who presents to the Emergency Room via EMS with complaints of abdominal pain. The patient states that this morning he was carrying a cup in his hand and accidentally tripped in the kitchen and fell. The patient states that he had recent umbilical hernia surgery on August 08 at [facility]. He states he he immediately put his left arm across his abdomen when he felt himself falling. The patient did not hit his head when he fell. He denies any dizziness or loss of consciousness. The patient states that he had a severe pain in his abdomen when he fell and he saw a bright light. The patient states that he saw some stars when he was trying to get up and still had the severe abdominal pain. His mother then came into the room and he was in too much pain to get up and therefore they called 911. The patient denies any nausea or vomiting. The patient denies any bruising to the abdomen. He does not think that he hit his abdomen when he fell. He states he landed on his left side. The patient states that his surgery was performed at [facility] on August [address] Hamilton. He was discharged on August 13 on both oxycodone and tramadol. The patient states that he had a lot of pain the first few days after surgery but then things slowly started to improve. He saw his surgeon on Tuesday and his family doctor, Dr. Frias on Tuesday. He states at that time everything was going well. He was down to taking his tramadol just on a as needed basis. They had discontinued his oxycodone. The patient had a normal bowel movement this morning before his fall occurred. The patient obtained a total of 12 mg of morphine by the EMS prior to arrival at the emergency room. The patient currently rates his pain at a 5 out of 10. Review of Systems 10 system review was performed and was negative unless stated otherwise history of present illness. Past Medical/Surgical History Medical Problems: (1) Bowel perforation (2) Diverticulitis Surgical Problems: (1) History of colostomy Family History Cancer Diabetes mellitus Social History Smoking Status: Former Smoker Alcohol Use: occasionally Drug Use: none Marital Status: single Occupation Status: employed Current/Historical Medications Scheduled Tramadol HCl (Tramadol HCl), 50 MG PO Q8 Scheduled PRN Calcium Carbonate (Tums), 1 TAB PO DAILY PRN for HEARTBURN Physical Exam Vital Signs Date Time Temp Pulse Resp B/P (MAP) Pulse Ox O2 Delivery O2 Flow Rate FiO2 08/28/17 12:22 82 08/28/17 12:00 81 18 145/96 96 Room Air 08/28/17 11:20 97 Room Air 08/28/17 11:06 36.8 87 20 138/99 96 Room Air Physical Exam GENERAL: 22-year-old male appears in no acute distress. MENTAL Status: Alert and oriented 3. MOUTH: Mucosa is moist NECK: Supple, no lymphadenopathy noted. No carotid bruits noted. LUNGS: Clear auscultation without wheezes rales or rhonchi. CARDIAC: Regular rate and rhythm without murmur. Pulses is full and equal throughout. BACK: No CVA tenderness noted. ABDOMEN: Positive bowel sounds all 4 quadrants. Vertical incision noted without any signs of infection of erythema or drainage. There is no surrounding ecchymosis. Soft, diffuse tenderness to palpation. Difficult to evaluate for organomegaly or masses secondary to patient's pain on palpation. EXTREMITIES: No cyanosis or edema noted. Medical Decision & Procedures ER Provider Diagnostic Interpretation: ABDOMEN 2VIEW W/PA CHEST RTN CLINICAL HISTORY: Abdominal pain. Trauma. History of recent hernia repair. COMPARISON STUDY: CT scan dated 05/22/2017 FINDINGS: The erect chest reveals no evidence of free air. There is no evidence of focal pulmonary consolidation.] Erect and supine views of the abdomen reveal no abnormally dilated loops of large or small bowel. There are no transition zone to indicate bowel obstruction. There are surgical clips within the right lower quadrant. There is a thoracolumbar scoliosis. IMPRESSION: No evidence of bowel obstruction. No evidence of free air. Electronically signed by: Wilson Becker M.D. 08/28/2017 12:01 PM ED Course The patient was evaluated. I did not give the patient any additional pain medication since she he already had 12 mg of morphine prior to arrival to the ER. Abdominal series x-ray was ordered interpreted by the radiologist and myself as above without any evidence of free air or acute findings. The patient was informed of the findings and discharged home in stable condition.. Medical Decision I felt that this patient probably just had the pain due to the recent surgery. I wanted to make sure that there was no perforation of the bowel by obtaining an x-ray which was indeed negative. [place] Drug [place] Search Results: patient reviewed within database Medication Reconcilliation Current Medication List: was personally reviewed by me Blood Pressure Screening Patient's blood pressure: Elevated blood pressure Blood pressure disposition: Elevated BP felt to be situational Impression Primary Impression: Abdominal pain Additional Impression: Fall Departure Information Dispostion Home / Self-Care Condition GOOD Prescriptions Oxycodone Immediate Rel Tab (ROXICODONE IR) 5 Mg Tab 1-2 TAB PO Q4H Y for Pain, #24 TAB Prov: Mami Prather PA-C 08/28/17 Referrals Lamine Coleman D.OScarlett (PCP) Forms Call Back Authorization, HOME CARE DOCUMENTATION FORM, IMPORTANT VISIT INFORMATION Patient Instructions My [facility] Additional Instructions Take the OxyIR as needed for pain. Do not drive while taking the OxyIR. Make sure you are taking a stool softener while on the OxyIR. Recommend calling her surgeon tomorrow to inform him of your fall to see if he would like to see you in follow-up. If symptoms should worsen, return to ER immediately. Problem Qualifiers Primary Impression: Abdominal pain Abdominal location: generalized Qualified Codes: R10.84 - Generalized abdominal pain Additional Impression: Fall Encounter type: initial encounter Qualified Codes: W19.XXXA - Unspecified fall, initial encounter
[2017-08-28 12:58] VITALS: BP 149/102; PULSE 79; O2SAT 99
== END 2017-08-28 12:58 | disposition home or self-care (01) ==
LOC: EDBD 11:06 → C.EDC 11:09
DX: R10.84 Generalized abdominal pain (principal); W01.0XXA Fall on same level from slipping, tripping and stumbling without subsequent striking against object, initial encounter; R03.0 Elevated blood-pressure reading, without diagnosis of hypertension; Z98.890 Other specified postprocedural states; Z87.891 Personal history of nicotine dependence; Z83.3 Family history of diabetes mellitus